=== PATIENT | male | born 1990 | race Caucasian/White ===

== ENCOUNTER 2018-06-29 21:39 | Emergency (ER) | payer OTHER ==
[2018-06-29 21:46] VITALS: BP 120/67
--- NOTE | 2018-06-29 22:03 | EDPHY ---
H & P Time Seen by Provider: 06/29/18 21:52 HPI/ROS: CHIEF COMPLAINT: "I think I have infected bug bites" HISTORY OF PRESENT ILLNESS: 28-year-old immunocompetent male complaining of erythema in areas where he has been excoriating insect bites on his arm. This has present for the past 2 days. No known history of cutaneous MRSA PHYSICAL EXAM (Prior to examination, patient consented to physical exam, hands were washed and my usual and customary physical exam procedures followed) 1) GENERAL: Well-developed, well-nourished, alert and oriented. Appears to be in no acute distress. 2) HEAD: Normocephalic 3) HEENT: sclera anicteric 4) LUNGS: Breathing comfortably. 5) SKIN: on the patient's right upper extremity he has multiple excoriated, erythematous indurated areas consistent with super infection secondary to insect wound. No evidence of diffuse cellulitis or necrotizing fasciitis. Soft compartments throughout. No crepitus. Smoking Status: Never smoked Constitutional: Initial Vital Signs Temperature (C) 36.6 C 06/29/18 21:44 Heart Rate 63 06/29/18 21:44 Respiratory Rate 16 06/29/18 21:44 Blood Pressure 120/67 06/29/18 21:44 O2 Sat (%) 96 06/29/18 21:44 Allergies/Adverse Reactions: amoxicillin [Amoxicillin] Allergy (Mild, Verified 06/29/18 21:43) Home Medications: Medication Instructions Recorded Cephalexin [Keflex] 500 mg PO TID 7 Days cap 06/29/18 MDM/Departure - [facility] ED Course/Re-evaluation: 10:01 p.m.: This patient has multiple bug bites which appear to have early cellulitis more than likely secondary to acute excoriation of said area. Doubt DVT. Doubt necrotizing fasciitis. I recommended elevation, oral antibiotics. Patient feels comfortable being discharged. All questions and concerns addressed by myself. Patient given my usual and customary discharge precautions and instructions regarding their clinical impression. Care of patient under supervision of secondary supervising physician Dr Hurd . - Depart Disposition: Home, Routine, Self-Care Clinical Impression: Cellulitis Qualifiers: Site of cellulitis: extremity Site of cellulitis of extremity: upper extremity Laterality: right Qualified Code(s): L03.113 - Cellulitis of right upper limb Condition: Good Instructions: Cellulitis (ED) Additional Instructions: Return to the ER if you develop redness, swelling, discharge, warmth to the wound, red streaks going up your leg, or any other symptoms that concern you. Prescriptions: Cephalexin [Keflex] 500 mg PO TID 7 Days cap Referrals: Sherry Ugalde MD [Medical Doctor] - 2-3 days, call for appt.
== END 2018-06-29 22:08 | disposition home or self-care (01) ==
DX: S40.861A Insect bite (nonvenomous) of right upper arm, initial encounter (principal); L03.113 Cellulitis of right upper limb; W57.XXXA Bitten or stung by nonvenomous insect and other nonvenomous arthropods, initial encounter